=== PATIENT | male | born 2000 | race Caucasian/White ===

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

== ENCOUNTER → 2019-04-13 | Outpatient (REF) | payer BC ==
[2019-04-13 19:58] LABS: ALBUMIN 3.9 GM/DL (3.2-5.2); ALT/SGPT 38 U/L (12-78); BILIRUBIN,TOTAL 0.8 MG/DL (0.2-1.0); BLOOD UREA NITROGEN 11 MG/DL (7-18); CARBON DIOXIDE LEVEL 29 MEQ/L (21-32); CHLORIDE LEVEL 105 MEQ/L (98-107); CHOLESTEROL LEVEL 219 MG/DL (<200); CHOLESTEROL RISK RATIO 5.341 (<5); CREATININE FOR GFR 0.87 MG/DL (0.70-1.30); GLUCOSE, FASTING 189 MG/DL (70-100); HDL CHOLESTEROL 41 MG/DL (>40); LDL CHOLESTEROL 163 MG/DL (<100); NON-HDL-C 178 MG/DL; POTASSIUM SERUM 4.4 MEQ/L (3.5-5.1); SODIUM LEVEL 138 MEQ/L (136-145); TRIGLYCERIDES LEVEL 77 MG/DL (<150)
== END ==
LOC: M LABDRWAD 19:09
PROVIDERS: ATTEND Nurse Practitioner Family
DX: E10.65 Type 1 diabetes mellitus with hyperglycemia (principal); E78.00 Pure hypercholesterolemia, unspecified

== ENCOUNTER → 2020-08-25 | Outpatient (REF) | payer OTHER ==
[2020-08-25 14:09] LABS: ALBUMIN 4.1 GM/DL (3.2-5.2); ALT/SGPT 41 U/L (12-78); BILIRUBIN,TOTAL 0.4 MG/DL (0.2-1.0); BLOOD UREA NITROGEN 13 MG/DL (7-18); CALCIUM LEVEL 9.2 MG/DL (8.5-10.1); CARBON DIOXIDE LEVEL 31 MEQ/L (21-32); CHLORIDE LEVEL 100 MEQ/L (98-107); CHOLESTEROL LEVEL 205 MG/DL (<200); CHOLESTEROL RISK RATIO 4.767 (<5); CREATININE FOR GFR 1.02 MG/DL (0.70-1.30); GLUCOSE, FASTING 275 MG/DL (70-100); HDL CHOLESTEROL 43 MG/DL (>40); LDL CHOLESTEROL 137 MG/DL (<100); NON-HDL-C 162 MG/DL; SODIUM LEVEL 136 MEQ/L (136-145); TOTAL PROTEIN 7.2 GM/DL (6.4-8.2); TRIGLYCERIDES LEVEL 126 MG/DL (<150)
[2020-08-25 14:12] LABS: TOTAL 25(OH) VITAMIN D 17.3 NG/ML (30.0-100.0)
[2020-08-25 14:29] LABS: CREATININE, URINE 50.5 MG/DL; MALB URINE SIEMENS < 5.0 MG/L; MAU/CREAT RATIO 9.9 MCG/MG (0.0-30.0)
== END ==
LOC: M LABDRWAD 12:23
PROVIDERS: ATTEND Nurse Practitioner
DX: Z79.4 Long term (current) use of insulin (principal)

== ENCOUNTER → 2022-03-12 | Outpatient (CLI) | payer BC ==
[~2022-03-12] MED LIST changes: +E-Z-GAS II EFFERVESCENT PACKET (SODIUM BICARB./CITRIC ACID/SIMETHICONE) As Ordered ONE; +E-Z-HD 98% w/w 340GM SUSP BTL As Ordered ONE; +E-Z-PAQUE 96% w/w SUSP 176GM BTL As Ordered ONE
== END ==
LOC: M RAD 08:18
PROVIDERS: ATTEND Physician Assistant
DX: K21.9 Gastro-esophageal reflux disease without esophagitis (principal); R11.10 Vomiting, unspecified

== ENCOUNTER 2022-04-19 15:42 | Emergency (ER) | payer BC ==
[~2022-04-19] VITALS: Ht 177.8 cm; Wt 99.2 kg
[~2022-04-19 15:42] MED LIST changes: -E-Z-GAS II EFFERVESCENT PACKET (SODIUM BICARB./CITRIC ACID/SIMETHICONE) As Ordered ONE; -E-Z-HD 98% w/w 340GM SUSP BTL As Ordered ONE; -E-Z-PAQUE 96% w/w SUSP 176GM BTL As Ordered ONE
[2022-04-19] MEDS ORDERED: ONDA4TAB6 (15:51)
[2022-04-19] MEDS ORDERED: PANT40TA29 (15:51)
[2022-04-19] MEDS ORDERED: HUMA50IN4 (15:51)
[2022-04-19] MEDS ORDERED: ONDANSETRON 4MG 2ML VIAL IV ONE (16:30)
[2022-04-19] MEDS: NS 1,000 ML IV SCH ×4 (17:19→19:33)
[2022-04-19 17:24] LABS: VENOUS BASE EXCESS 2.5 (-2.0-2.0); VENOUS HCO3 25.8 MEQ/L (23.0-27.0); VENOUS PARTIAL PRESSURE CO2 36.2 mmHg (38.0-50.0); VENOUS PARTIAL PRESSURE O2 36.9 mmHg (30.0-50.0); VENOUS PH 7.471 UNITS (7.330-7.430); VENOUS TOTAL CO2 26.9 MEQ/L (24.0-28.0)
[2022-04-19 17:46] LABS: BASO % 0.2 % (0.0-1.0); EOS % 0.1 % (0.0-3.0); HEMOGLOBIN 16.3 g/dl (13.5-17.5); LYMPH # 2.5 10^3/uL (1.5-5.0); LYMPH % 19.4 % (24.0-44.0); MEAN CORPUSCULAR HEMOGLOBIN 29.1 pg (27.0-33.0); MEAN CORPUSCULAR HGB CONC 35.4 g/dl (32.0-36.5); MEAN CORPUSCULAR VOLUME 82.1 fl (80.0-96.0); MONO # 1.1 10^3/uL (0.0-0.8); MONO % 8.6 % (2.0-8.0); NEUTROPHILS # 9.2 10^3/uL (1.5-8.5); NEUTROPHILS % 71.4 % (36.0-66.0); PLATELET COUNT, AUTOMATED 305 10^3/uL (150-450); WHITE BLOOD COUNT 12.9 10^3/uL (4.0-10.0)
[2022-04-19] MEDS ORDERED: CAPSAICIN 0.025% CR 60 GM TOP ONE (17:50)
[2022-04-19 18:03] LABS: RSV AMPLIFICATION NEGATIVE (NEGATIVE)
[2022-04-19 18:09] LABS: OSMOLALITY SERUM 284 MOSM/KG (275-295)
[2022-04-19 18:13] LABS: ACETONE/KETONE 31.98 MG/DL (<2.81); ALBUMIN 4.1 GM/DL (3.2-5.2); ALT/SGPT 32 U/L (12-78); BILIRUBIN,DIRECT 0.3 MG/DL (0.0-0.2); BLOOD UREA NITROGEN 22 MG/DL (7-18); CALCIUM LEVEL 9.8 MG/DL (8.5-10.1); CARBON DIOXIDE LEVEL 25 MEQ/L (21-32); CHLORIDE LEVEL 95 MEQ/L (98-107); CREATININE FOR GFR 0.91 MG/DL (0.70-1.30); GLOMERULAR FILTRATION RATE > 60.0 (>60); GLUCOSE, FASTING 233 MG/DL (70-100); LIPASE 43 U/L (73-393); POTASSIUM SERUM 3.4 MEQ/L (3.5-5.1); SODIUM LEVEL 132 MEQ/L (136-145); TOTAL PROTEIN 7.9 GM/DL (6.4-8.2)
[2022-04-19 18:33] VITALS: BP 161/81
[2022-04-19] MEDS ORDERED: METOCLOPRAMIDE INJ 10MG/2ML VIAL (J2765 PER 1) IV ONE (18:35)
[2022-04-19] MEDS ORDERED: POTASSIUM CHLORIDE 10MEQ SR TABLET PO ONE (18:35)
[2022-04-19] MEDS ORDERED: NS 1,000 ML IV ONE (18:50)
[2022-04-19 18:58] LABS: HEMOGLOBIN A1c 6.8 %
[2022-04-19] MEDS ORDERED: PROM25TA12 PO (20:29)
== END 2022-04-19 20:45 | disposition home or self-care (01) ==
LOC: M ED 15:42
DX: E10.65 Type 1 diabetes mellitus with hyperglycemia (principal); F41.9 Anxiety disorder, unspecified; Z79.899 Other long term (current) drug therapy; Z79.4 Long term (current) use of insulin; Z88.1 Allergy status to other antibiotic agents; Z91.040 Latex allergy status; F17.200 Nicotine dependence, unspecified, uncomplicated
CPT/HCPCS: 80047; 80048; 80076; 81001; 82010; 82803; 83036; 83690; 83930; 85025; 87631; 93005; 96361; 96374; 99284; J2405; J2765

== ENCOUNTER 2022-04-21 14:34 | Emergency (ER) | payer BC ==
[~2022-04-21] VITALS: Ht 177.8 cm; Wt 99.8 kg
[~2022-04-21 14:34] MED LIST changes: +HUMA50IN4; +ONDA4TAB6; +PANT40TA29; +PROM25TA12 PO
[2022-04-21 15:39] LABS: VENOUS BASE EXCESS 1.7 (-2.0-2.0); VENOUS HCO3 25.2 MEQ/L (23.0-27.0); VENOUS O2 SATURATION 74.1 % (60.0-80.0); VENOUS PARTIAL PRESSURE CO2 36.7 mmHg (38.0-50.0); VENOUS PARTIAL PRESSURE O2 35.7 mmHg (30.0-50.0); VENOUS PH 7.455 UNITS (7.330-7.430); VENOUS STANDARD HCO3 25.2 MEQ/L; VENOUS TOTAL CO2 26.4 MEQ/L (24.0-28.0)
[2022-04-21 15:42] LABS: BASO % 0.2 % (0.0-1.0); EOS % 0.3 % (0.0-3.0); HEMATOCRIT 46.9 % (42.0-52.0); LYMPH # 2.9 10^3/uL (1.5-5.0); LYMPH % 23.3 % (24.0-44.0); MEAN CORPUSCULAR HEMOGLOBIN 29.1 pg (27.0-33.0); MEAN CORPUSCULAR HGB CONC 36.2 g/dl (32.0-36.5); MEAN CORPUSCULAR VOLUME 80.2 fl (80.0-96.0); MONO # 0.8 10^3/uL (0.0-0.8); MONO % 6.6 % (2.0-8.0); NEUTROPHILS # 8.7 10^3/uL (1.5-8.5); NEUTROPHILS % 69.1 % (36.0-66.0); PLATELET COUNT, AUTOMATED 317 10^3/uL (150-450); RED BLOOD COUNT 5.85 10^6/uL (4.30-6.10); WHITE BLOOD COUNT 12.6 10^3/uL (4.0-10.0)
[2022-04-21 16:33] LABS: OSMOLALITY SERUM 278 MOSM/KG (275-295)
[2022-04-21 16:48] LABS: ACETONE/KETONE 3.28 MG/DL (<2.81); ALT/SGPT 34 U/L (12-78); BILIRUBIN,DIRECT 0.3 MG/DL (0.0-0.2); BILIRUBIN,TOTAL 1.5 MG/DL (0.2-1.0); BLOOD UREA NITROGEN 13 MG/DL (7-18); CALCIUM LEVEL 9.7 MG/DL (8.5-10.1); CARBON DIOXIDE LEVEL 25 MEQ/L (21-32); CHLORIDE LEVEL 97 MEQ/L (98-107); CREATININE FOR GFR 0.92 MG/DL (0.70-1.30); GLOMERULAR FILTRATION RATE > 60.0 (>60); GLUCOSE, FASTING 245 MG/DL (70-100); LIPASE 56 U/L (73-393); POTASSIUM SERUM 3.3 MEQ/L (3.5-5.1); SODIUM LEVEL 130 MEQ/L (136-145); TOTAL PROTEIN 7.8 GM/DL (6.4-8.2)
[2022-04-21 17:29] LABS: HEMOGLOBIN A1c 6.8 %
[2022-04-21] MEDS ORDERED: METOCLOPRAMIDE 10MG TAB PO ONE (21:05)
[2022-04-21 22:05] VITALS: BP 145/70
== END 2022-04-21 22:06 | disposition home or self-care (01) ==
LOC: M ED 14:34
DX: E10.65 Type 1 diabetes mellitus with hyperglycemia (principal); K20.0 Eosinophilic esophagitis; K21.9 Gastro-esophageal reflux disease without esophagitis; Z88.1 Allergy status to other antibiotic agents; Z91.040 Latex allergy status; Z79.899 Other long term (current) drug therapy; Z79.4 Long term (current) use of insulin; Z77.098 Contact with and (suspected) exposure to other hazardous, chiefly nonmedicinal, chemicals

== ENCOUNTER 2023-02-28 03:17 | Inpatient (IN) | payer BC ==
[~2023-02-28] VITALS: Ht 177.8 cm; Wt 111.5 kg
[~2023-02-28 03:17] MED LIST changes: -HUMA50IN4; +HUMA50IN4 SC; -PANT40TA29; +PANT40TA29 PO
[2023-02-28] MEDS ORDERED: NS 1,000 ML IV ONE ×3 (03:55→09:30)
[2023-02-28 04:05] LABS: VENOUS BASE EXCESS 2.1 (-2.0-2.0); VENOUS HCO3 23.1 MMOL/L (23.0-27.0); VENOUS O2 SATURATION 84.8 % (60.0-80.0); VENOUS PARTIAL PRESSURE CO2 28.1 mmHg (38.0-50.0); VENOUS PH 7.532 UNITS (7.330-7.430); VENOUS STANDARD HCO3 25.9 MMOL/L; VENOUS TOTAL CO2 23.9 MMOL/L (24.0-28.0)
[2023-02-28] MEDS ORDERED: METOCLOPRAMIDE INJ 10MG/2ML VIAL IV ONE (04:10)
[2023-02-28 04:13] LABS: BASO % 0.3 % (0.0-1.0); EOS % 0.3 % (0.0-3.0); HEMATOCRIT 49.9 % (42.0-52.0); HEMOGLOBIN 17.6 g/dl (13.5-17.5); LYMPH # 2.5 10^3/uL (1.5-5.0); LYMPH % 21.1 % (24.0-44.0); MEAN CORPUSCULAR HGB CONC 35.3 g/dl (32.0-36.5); MEAN CORPUSCULAR VOLUME 82.2 fl (80.0-96.0); MONO # 0.9 10^3/uL (0.0-0.8); NEUTROPHILS # 8.1 10^3/uL (1.5-8.5); NEUTROPHILS % 69.6 % (36.0-66.0); PLATELET COUNT, AUTOMATED 348 10^3/uL (150-450); RED BLOOD COUNT 6.07 10^6/uL (4.30-6.10); WHITE BLOOD COUNT 11.7 10^3/uL (4.0-10.0)
[2023-02-28 04:32] LABS: LIPASE 27 U/L (12-53)
[2023-02-28 04:34] LABS: ALBUMIN 4.5 G/DL (3.2-5.2); ALKALINE PHOSPHATASE 100 U/L (46-116); ALT/SGPT 28 U/L (7.0-40); AMYLASE 29 U/L (30-118); AST/SGOT 26 U/L (<34); BILIRUBIN,DIRECT 0.4 MG/DL (<0.4); BILIRUBIN,TOTAL 2.1 MG/DL (0.3-1.2); BLOOD UREA NITROGEN 13 MG/DL (9-23); CALCIUM LEVEL 9.3 MG/DL (8.5-10.1); CARBON DIOXIDE LEVEL 22 MMOL/L (20-31); CHLORIDE LEVEL 97 MMOL/L (98-107); CREATININE FOR GFR 0.73 MG/DL (0.70-1.30); GLOMERULAR FILTRATION RATE > 60.0 (>60); GLUCOSE, FASTING 192 MG/DL (60-100); SODIUM LEVEL 133 MMOL/L (136-145); TOTAL PROTEIN 7.5 G/DL (5.7-8.2)
[2023-02-28 04:35] LABS: ACETONE/KETONE 2.76 MMOL/L (0.02-0.27)
[2023-02-28 04:40] LABS: HEMOGLOBIN A1c 7.2 % (4.0-6.0)
[2023-02-28 04:44] LABS: OSMOLALITY SERUM 280 MOSM/KG (275-295)
[2023-02-28] MEDS ORDERED: ISOVUE-370 76% 100ML VIAL As Ordered ONE (07:33)
[2023-02-28] MEDS: NS 1,000 ML IV SCH ×2 (08:00→19:42)
[2023-02-28] MEDS ORDERED: LORazepam 2 MG/ML 1ML VIAL IV ONE (08:15)
[2023-02-28] MEDS ORDERED: FLUT22IN INH (08:17)
[2023-02-28] MEDS ORDERED: HOME MED LIST COMPLETE! XX SCH (08:20)
[2023-02-28] MEDS: PANTOPRAZOLE 40MG VIAL IV SCH ×2 (09:03→21:17)
[2023-02-28] MEDS ORDERED: LORazepam 2 MG/ML 1ML VIAL IV PRN (09:30)
[2023-02-28] MEDS ORDERED: DEXTROSE 50% 50ML SYRINGE IV PRN (09:30)
[2023-02-28] MEDS ORDERED: GLUCOSE 4GM CHEW TABLET PO PRN (09:30)
[2023-02-28] MEDS ORDERED: GLUCAGON INJ 1MG VIAL SC PRN (09:30)
[2023-02-28 10:08] VITALS: BP 150/90; TEMP 99; O2SAT 99
[2023-02-28] MEDS: CAPSAICIN 0.025% CR 60 GM TOP SCH ×3 (10:33→21:19)
[2023-02-28 10:39] LABS: BLOOD UREA NITROGEN 11 MG/DL (9-23); CARBON DIOXIDE LEVEL 25 MMOL/L (20-31); CHLORIDE LEVEL 100 MMOL/L (98-107); CREATININE FOR GFR 0.74 MG/DL (0.70-1.30); GLOMERULAR FILTRATION RATE > 60.0 (>60); GLUCOSE, FASTING 235 MG/DL (60-100); MAGNESIUM LEVEL 1.9 MG/DL (1.8-2.4); PHOSPHORUS LEVEL 2.4 MG/DL (2.5-4.9); POTASSIUM SERUM 3.5 MMOL/L (3.5-5.1); SODIUM LEVEL 135 MMOL/L (136-145)
[2023-02-28] MEDS ORDERED: INSULIN LISPRO (NovoLOG) PER UNIT SC SCH ×2 (12:00→21:00)
[2023-02-28] MEDS: SUCRALFATE SUSP 1GM/10ML UD PO SCH ×3 (12:23→23:42)
[2023-02-28] MEDS: INSULIN LISPRO (NovoLOG) PER UNIT SC SCH ×3 (12:24→23:43)
[2023-02-28 14:00] VITALS: BP 182/98; TEMP 98.8; O2SAT 97
[2023-02-28] MEDS ORDERED: amLODIPine 5 MG TAB PO ONE (15:40)
[2023-02-28] MEDS ORDERED: SCOPOLAMINE 1MG TRANSDERMAL PATCH TOP ONE (17:00)
[2023-02-28] MEDS: FLUTICASONE HFA 220 MCG 12 GM INHALER (FLOVENT) INH SCH (17:18)
[2023-02-28] MEDS ORDERED: FLUTICASONE HFA 220 MCG 12 GM INHALER (FLOVENT) INH SCH (17:30)
[2023-02-28 18:00] VITALS: BP 110/58; TEMP 98.8; O2SAT 96
[2023-02-28] MEDS ORDERED: POTASSIUM PHOSPHATE INJ 20 MMOL in D5W 250 ML IV ONE (18:00)
[2023-02-28] MEDS ORDERED: amLODIPine 5 MG TAB PO SCH (21:00)
[2023-02-28 21:19] VITALS: BP 150/62
[2023-02-28 22:00] VITALS: BP 139/85; TEMP 98.8; O2SAT 97
[2023-03-01] VITALS (9 sets, daily range): BP systolic 108–178; BP diastolic 56–100; TEMP 97–98.4; O2SAT 95–99
[2023-03-01] MEDS: SUCRALFATE SUSP 1GM/10ML UD PO SCH ×4 (06:03→22:14)
[2023-03-01 06:06] LABS: BASO % 0.4 % (0.0-1.0); EOS % 0.5 % (0.0-3.0); HEMATOCRIT 44.2 % (42.0-52.0); HEMOGLOBIN 15.8 g/dl (13.5-17.5); LYMPH % 23.1 % (24.0-44.0); MEAN CORPUSCULAR HEMOGLOBIN 29.8 pg (27.0-33.0); MEAN CORPUSCULAR HGB CONC 35.7 g/dl (32.0-36.5); MEAN CORPUSCULAR VOLUME 83.2 fl (80.0-96.0); MONO # 0.7 10^3/uL (0.0-0.8); NEUTROPHILS # 5.7 10^3/uL (1.5-8.5); NEUTROPHILS % 67.4 % (36.0-66.0); PLATELET COUNT, AUTOMATED 267 10^3/uL (150-450); RED BLOOD COUNT 5.31 10^6/uL (4.30-6.10); WHITE BLOOD COUNT 8.5 10^3/uL (4.0-10.0)
[2023-03-01] MEDS: INSULIN LISPRO (NovoLOG) PER UNIT SC SCH ×4 (06:06→23:59)
[2023-03-01 06:42] LABS: ALBUMIN 4.1 G/DL (3.2-5.2); ALKALINE PHOSPHATASE 89 U/L (46-116); ALT/SGPT 23 U/L (7.0-40); AST/SGOT 9 U/L (<34); BLOOD UREA NITROGEN 6 MG/DL (9-23); CALCIUM LEVEL 9.2 MG/DL (8.5-10.1); CARBON DIOXIDE LEVEL 28 MMOL/L (20-31); CHLORIDE LEVEL 98 MMOL/L (98-107); CREATININE FOR GFR 0.69 MG/DL (0.70-1.30); GLOMERULAR FILTRATION RATE > 60.0 (>60); GLUCOSE, FASTING 113 MG/DL (60-100); MAGNESIUM LEVEL 1.8 MG/DL (1.8-2.4); PHOSPHORUS LEVEL 3.3 MG/DL (2.5-4.9); POTASSIUM SERUM 3.1 MMOL/L (3.5-5.1); SODIUM LEVEL 135 MMOL/L (136-145); TOTAL PROTEIN 7.1 G/DL (5.7-8.2)
[2023-03-01] MEDS: FLUTICASONE HFA 220 MCG 12 GM INHALER (FLOVENT) INH SCH ×2 (07:27→17:03)
[2023-03-01] MEDS ORDERED: POTASSIUM CHLORIDE 10MEQ SR TABLET PO ONE ×2 (08:00→10:00)
[2023-03-01] MEDS: ENOXAPARIN 40MG/0.4ML SYRINGE (J1650 PER 10MG) SC SCH ×2 (09:00→09:47)
[2023-03-01] MEDS: PANTOPRAZOLE 40MG VIAL IV SCH ×2 (09:47→22:14)
[2023-03-01] MEDS: NS 1,000 ML IV SCH ×3 (09:47→23:55)
[2023-03-01] MEDS: CAPSAICIN 0.025% CR 60 GM TOP SCH ×3 (09:48→22:15)
[2023-03-01 11:22] LABS: AMPHETAMINES LEVEL URINE NEGATIVE (NEGATIVE); BARBITURATES URINE NEGATIVE (NEGATIVE); BENZODIAZEPINES URINE NEGATIVE (NEGATIVE); COCAINE METABOLITE URINE NEGATIVE (NEGATIVE); PHENCYCLIDINE URINE NEGATIVE (NEGATIVE)
[2023-03-01 11:23] LABS: METHADONE URINE NEGATIVE (NEGATIVE); OPIATES URINE NEGATIVE (NEGATIVE)
[2023-03-01 11:25] LABS: CANNABINOIDS URINE POSITIVE (NEGATIVE)
[2023-03-01] MEDS ORDERED: ONDANSETRON 4MG 2ML VIAL IV PRN (16:55)
[2023-03-01] MEDS ORDERED: TEMAZEPAM 7.5 MG CAP PO PRN (20:35)
[2023-03-01] MEDS: ONDANSETRON 4MG 2ML VIAL IV SCH (22:14)
[2023-03-02 02:00] VITALS: BP 146/91; TEMP 97.7; O2SAT 100
[2023-03-02] MEDS: SUCRALFATE SUSP 1GM/10ML UD PO SCH ×3 (06:33→17:51)
[2023-03-02] MEDS: INSULIN LISPRO (NovoLOG) PER UNIT SC SCH ×3 (06:33→17:51)
[2023-03-02 06:34] LABS: HEMATOCRIT 45.9 % (42.0-52.0); MEAN CORPUSCULAR HEMOGLOBIN 29.2 pg (27.0-33.0); MEAN CORPUSCULAR HGB CONC 34.9 g/dl (32.0-36.5); MEAN CORPUSCULAR VOLUME 83.8 fl (80.0-96.0); PLATELET COUNT, AUTOMATED 269 10^3/uL (150-450); RED BLOOD COUNT 5.48 10^6/uL (4.30-6.10); WHITE BLOOD COUNT 10.7 10^3/uL (4.0-10.0)
[2023-03-02 06:58] LABS: ALBUMIN 4.3 G/DL (3.2-5.2); ALKALINE PHOSPHATASE 91 U/L (46-116); ALT/SGPT 23 U/L (7.0-40); AST/SGOT 9 U/L (<34); BILIRUBIN,TOTAL 1.9 MG/DL (0.3-1.2); BLOOD UREA NITROGEN 8 MG/DL (9-23); CALCIUM LEVEL 9.2 MG/DL (8.5-10.1); CARBON DIOXIDE LEVEL 28 MMOL/L (20-31); CHLORIDE LEVEL 96 MMOL/L (98-107); CREATININE FOR GFR 0.81 MG/DL (0.70-1.30); GLOMERULAR FILTRATION RATE > 60.0 (>60); GLUCOSE, FASTING 179 MG/DL (60-100); POTASSIUM SERUM 3.5 MMOL/L (3.5-5.1); SODIUM LEVEL 134 MMOL/L (136-145); TOTAL PROTEIN 7.2 G/DL (5.7-8.2)
[2023-03-02] MEDS: FLUTICASONE HFA 220 MCG 12 GM INHALER (FLOVENT) INH SCH ×2 (07:27→19:48)
[2023-03-02] MEDS: ENOXAPARIN 40MG/0.4ML SYRINGE (J1650 PER 10MG) SC SCH (08:50)
[2023-03-02] MEDS: ONDANSETRON 4MG 2ML VIAL IV SCH ×3 (08:56→21:05)
[2023-03-02] MEDS: PANTOPRAZOLE 40MG VIAL IV SCH ×2 (08:56→21:03)
[2023-03-02] MEDS: NS 1,000 ML IV SCH ×2 (08:58→21:03)
[2023-03-02] MEDS: CAPSAICIN 0.025% CR 60 GM TOP SCH ×3 (08:59→21:05)
[2023-03-02 10:00] VITALS: BP 102/72; TEMP 98.1; O2SAT 97
[2023-03-02 14:00] VITALS: BP 135/81; TEMP 98.4; O2SAT 99
[2023-03-02 18:00] VITALS: BP 164/84; TEMP 98.8; O2SAT 97
[2023-03-02] MEDS ORDERED: INSULIN LISPRO (NovoLOG) PER UNIT SC SCH (21:00)
[2023-03-02] MEDS: RAMELTEON 8 MG TAB (ROZEREM) PO SCH (21:03)
[2023-03-02 22:00] VITALS: BP 147/84; TEMP 98.1; O2SAT 100
[2023-03-03] MEDS: SUCRALFATE SUSP 1GM/10ML UD PO SCH ×5 (00:55→23:17)
[2023-03-03 05:33] VITALS: BP 121/73; TEMP 98.4; O2SAT 100
[2023-03-03] MEDS: FLUTICASONE HFA 220 MCG 12 GM INHALER (FLOVENT) INH SCH ×2 (07:30→17:58)
[2023-03-03] MEDS ORDERED: INSULIN LISPRO (NovoLOG) PER UNIT SC SCH ×2 (07:30→12:00)
[2023-03-03 08:00] LABS: HEMATOCRIT 39.5 % (42.0-52.0); HEMOGLOBIN 13.7 g/dl (13.5-17.5); MEAN CORPUSCULAR HEMOGLOBIN 29.5 pg (27.0-33.0); MEAN CORPUSCULAR HGB CONC 34.7 g/dl (32.0-36.5); MEAN CORPUSCULAR VOLUME 84.9 fl (80.0-96.0); PLATELET COUNT, AUTOMATED 247 10^3/uL (150-450); RED BLOOD COUNT 4.65 10^6/uL (4.30-6.10); WHITE BLOOD COUNT 10.9 10^3/uL (4.0-10.0)
[2023-03-03 08:34] LABS: ALBUMIN 3.5 G/DL (3.2-5.2); ALKALINE PHOSPHATASE 69 U/L (46-116); ALT/SGPT 21 U/L (7.0-40); AST/SGOT 9 U/L (<34); BILIRUBIN,TOTAL 1.4 MG/DL (0.3-1.2); BLOOD UREA NITROGEN 8 MG/DL (9-23); CALCIUM LEVEL 9.2 MG/DL (8.5-10.1); CARBON DIOXIDE LEVEL 28 MMOL/L (20-31); CHLORIDE LEVEL 100 MMOL/L (98-107); CREATININE FOR GFR 0.84 MG/DL (0.70-1.30); GLOMERULAR FILTRATION RATE > 60.0 (>60); GLUCOSE, FASTING 156 MG/DL (60-100); POTASSIUM SERUM 2.9 MMOL/L (3.5-5.1); SODIUM LEVEL 136 MMOL/L (136-145)
[2023-03-03] MEDS: ENOXAPARIN 40MG/0.4ML SYRINGE (J1650 PER 10MG) SC SCH (08:40)
[2023-03-03] MEDS: PANTOPRAZOLE 40MG VIAL IV SCH ×2 (08:41→20:52)
[2023-03-03] MEDS: CAPSAICIN 0.025% CR 60 GM TOP SCH ×3 (08:41→20:53)
[2023-03-03] MEDS: ONDANSETRON 4MG 2ML VIAL IV SCH ×3 (08:41→20:52)
[2023-03-03] MEDS: POTASSIUM CHLORIDE 10MEQ SR TABLET PO SCH ×2 (09:55→20:52)
[2023-03-03] MEDS: INSULIN LISPRO (NovoLOG) PER UNIT SC SCH ×3 (13:15→20:53)
[2023-03-03 14:00] VITALS: BP 153/75; TEMP 97.7; O2SAT 99
[2023-03-03 16:00] LABS: BLOOD UREA NITROGEN 7 MG/DL (9-23); CARBON DIOXIDE LEVEL 27 MMOL/L (20-31); CHLORIDE LEVEL 98 MMOL/L (98-107); GLOMERULAR FILTRATION RATE > 60.0 (>60); GLUCOSE, FASTING 223 MG/DL (60-100); POTASSIUM SERUM 3.8 MMOL/L (3.5-5.1); SODIUM LEVEL 132 MMOL/L (136-145)
[2023-03-03 20:00] VITALS: BP 149/77; TEMP 97.5; O2SAT 98
[2023-03-03] MEDS: RAMELTEON 8 MG TAB (ROZEREM) PO SCH (20:52)
[2023-03-03] MEDS ORDERED: PROMETHAZINE 25MG/ML 1ML VIAL IV ONE (23:40)
[2023-03-04] VITALS (8 sets, daily range): BP systolic 110–143; BP diastolic 62–83; TEMP 97.3–98.6; O2SAT 95–100
[2023-03-04] MEDS: SUCRALFATE SUSP 1GM/10ML UD PO SCH ×4 (05:27→22:29)
[2023-03-04 06:25] LABS: HEMATOCRIT 40.8 % (42.0-52.0); HEMOGLOBIN 14.5 g/dl (13.5-17.5); MEAN CORPUSCULAR HEMOGLOBIN 29.6 pg (27.0-33.0); MEAN CORPUSCULAR HGB CONC 35.5 g/dl (32.0-36.5); MEAN CORPUSCULAR VOLUME 83.3 fl (80.0-96.0); PLATELET COUNT, AUTOMATED 269 10^3/uL (150-450); WHITE BLOOD COUNT 11.7 10^3/uL (4.0-10.0)
[2023-03-04 06:54] LABS: ALBUMIN 3.9 G/DL (3.2-5.2); ALKALINE PHOSPHATASE 77 U/L (46-116); ALT/SGPT 21 U/L (7.0-40); AST/SGOT 8 U/L (<34); BILIRUBIN,TOTAL 1.1 MG/DL (0.3-1.2); BLOOD UREA NITROGEN 8 MG/DL (9-23); CALCIUM LEVEL 9.2 MG/DL (8.5-10.1); CARBON DIOXIDE LEVEL 27 MMOL/L (20-31); CHLORIDE LEVEL 99 MMOL/L (98-107); CREATININE FOR GFR 0.84 MG/DL (0.70-1.30); GLOMERULAR FILTRATION RATE > 60.0 (>60); GLUCOSE, FASTING 177 MG/DL (60-100); POTASSIUM SERUM 3.8 MMOL/L (3.5-5.1); SODIUM LEVEL 134 MMOL/L (136-145); TOTAL PROTEIN 6.4 G/DL (5.7-8.2)
[2023-03-04] MEDS: INSULIN LISPRO (NovoLOG) PER UNIT SC SCH ×4 (07:30→22:24)
[2023-03-04] MEDS: FLUTICASONE HFA 220 MCG 12 GM INHALER (FLOVENT) INH SCH ×2 (07:49→18:31)
[2023-03-04] MEDS: ONDANSETRON 4MG 2ML VIAL IV SCH ×3 (08:32→22:23)
[2023-03-04] MEDS: POTASSIUM CHLORIDE 10MEQ SR TABLET PO SCH ×2 (08:32→21:00)
[2023-03-04] MEDS: CAPSAICIN 0.025% CR 60 GM TOP SCH ×3 (08:32→21:00)
[2023-03-04] MEDS: PANTOPRAZOLE 40MG VIAL IV SCH ×2 (08:32→21:00)
[2023-03-04] MEDS: NS 1,000 ML IV SCH (17:20)
[2023-03-04] MEDS: RAMELTEON 8 MG TAB (ROZEREM) PO SCH (21:00)
[2023-03-04] MEDS ORDERED: propofoL 200 MG/20 ML VIAL As Ordered ONE (21:19)
[2023-03-04] MEDS ORDERED: LIDOCAINE 2% 100MG/5ML SDV (FOR ANES.) As Ordered ONE (21:19)
[2023-03-04] MEDS ORDERED: fentaNYL 100 MCG/2 ML INJECTION As Ordered ONE (21:19)
[2023-03-05 00:10] VITALS: BP 156/79; TEMP 97.3; O2SAT 94
[2023-03-05 01:10] VITALS: BP 139/65; TEMP 98.2; O2SAT 91
[2023-03-05] MEDS: NS 1,000 ML IV SCH (01:58)
[2023-03-05 02:10] VITALS: BP 108/60; TEMP 98.6; O2SAT 93
[2023-03-05 03:10] VITALS: BP 126/81; TEMP 98.1; O2SAT 95
[2023-03-05] MEDS: INSULIN LISPRO (NovoLOG) PER UNIT SC SCH (04:27)
[2023-03-05 06:18] LABS: HEMATOCRIT 36.9 % (42.0-52.0); HEMOGLOBIN 12.8 g/dl (13.5-17.5); MEAN CORPUSCULAR HEMOGLOBIN 29.4 pg (27.0-33.0); MEAN CORPUSCULAR HGB CONC 34.7 g/dl (32.0-36.5); MEAN CORPUSCULAR VOLUME 84.8 fl (80.0-96.0); PLATELET COUNT, AUTOMATED 247 10^3/uL (150-450); RED BLOOD COUNT 4.35 10^6/uL (4.30-6.10); WHITE BLOOD COUNT 10.8 10^3/uL (4.0-10.0)
[2023-03-05] MEDS: SUCRALFATE SUSP 1GM/10ML UD PO SCH (06:35)
[2023-03-05 06:37] LABS: ALBUMIN 3.2 G/DL (3.2-5.2); ALKALINE PHOSPHATASE 68 U/L (46-116); ALT/SGPT 21 U/L (7.0-40); AST/SGOT 9 U/L (<34); BILIRUBIN,TOTAL 0.4 MG/DL (0.3-1.2); BLOOD UREA NITROGEN 12 MG/DL (9-23); CALCIUM LEVEL 8.1 MG/DL (8.5-10.1); CARBON DIOXIDE LEVEL 26 MMOL/L (20-31); CHLORIDE LEVEL 103 MMOL/L (98-107); CREATININE FOR GFR 0.88 MG/DL (0.70-1.30); GLOMERULAR FILTRATION RATE > 60.0 (>60); GLUCOSE, FASTING 228 MG/DL (60-100); POTASSIUM SERUM 3.6 MMOL/L (3.5-5.1); SODIUM LEVEL 135 MMOL/L (136-145); TOTAL PROTEIN 5.4 G/DL (5.7-8.2)
[2023-03-05 07:10] VITALS: BP 114/70; TEMP 98.1; O2SAT 96
[2023-03-05] MEDS: FLUTICASONE HFA 220 MCG 12 GM INHALER (FLOVENT) INH SCH (07:49)
[2023-03-05] MEDS: ONDANSETRON 4MG 2ML VIAL IV SCH ×2 (08:07→11:15)
[2023-03-05] MEDS: PANTOPRAZOLE 40MG VIAL IV SCH (08:07)
[2023-03-05] MEDS: ENOXAPARIN 40MG/0.4ML SYRINGE (J1650 PER 10MG) SC SCH (08:08)
[2023-03-05] MEDS: POTASSIUM CHLORIDE 10MEQ SR TABLET PO SCH (08:08)
[2023-03-05] MEDS: CAPSAICIN 0.025% CR 60 GM TOP SCH (08:09)
[2023-03-05] MEDS ORDERED: ONDA4TAB6 PO (10:03)
[2023-03-05] MEDS ORDERED: PANT40TA29 PO (10:03)
[2023-03-05 10:23] VITALS: BP 168/100; TEMP 97.3
[2023-03-05] MEDS ORDERED: AMLO25TA PO (11:41)
== END 2023-03-05 12:00 | disposition home or self-care (01) | DRG 48 ==
LOC: M ED 03:17 → M ED INP 03:18 → ENRESERV 09:31 → M MSPAV 10:02 → M ED INP 17:18 → OBSVTOIN 17:18
PROVIDERS: ADMIT Internal Medicine; ATTEND Internal Medicine
PROC: 0DB18ZX Excision of Upper Esophagus, Via Natural or Artificial Opening Endoscopic, Diagnostic (ICD-10-PCS; 2023-03-04)
PROC: 0DB78ZX Excision of Stomach, Pylorus, Via Natural or Artificial Opening Endoscopic, Diagnostic (ICD-10-PCS; 2023-03-04)
PROC: 0DB38ZX Excision of Lower Esophagus, Via Natural or Artificial Opening Endoscopic, Diagnostic (ICD-10-PCS; principal; 2023-03-04 18:30)
DX: E10.43 Type 1 diabetes mellitus with diabetic autonomic (poly)neuropathy (principal); E10.65 Type 1 diabetes mellitus with hyperglycemia; K22.89 Other specified disease of esophagus; K21.00 Gastro-esophageal reflux disease with esophagitis, without bleeding; F17.290 Nicotine dependence, other tobacco product, uncomplicated; F12.188 Cannabis abuse with other cannabis-induced disorder; Z79.4 Long term (current) use of insulin; Z79.899 Other long term (current) drug therapy; Z88.1 Allergy status to other antibiotic agents; Z91.040 Latex allergy status; R94.31 Abnormal electrocardiogram [ECG] [EKG]; E87.6 Hypokalemia; E66.9 Obesity, unspecified; K29.70 Gastritis, unspecified, without bleeding; K31.84 Gastroparesis; K44.9 Diaphragmatic hernia without obstruction or gangrene; R11.2 Nausea with vomiting, unspecified; Z68.35 Body mass index [BMI] 35.0-35.9, adult

== ENCOUNTER → 2023-12-08 | Outpatient (REF) | payer BC ==
[~2023-12-08] MED LIST changes: +AMLO25TA PO; +FLUT22IN INH; +ONDA4TAB6 PO
== END ==
LOC: M SFHCDERM 13:02
PROVIDERS: ATTEND Nurse Practitioner Family
DX: D49.2 Neoplasm of unspecified behavior of bone, soft tissue, and skin (principal)